=== PATIENT | female | born 1995 | race Caucasian/White ===

== ENCOUNTER 2023-08-07 10:58 | Emergency (ER) | payer BC, SELFPAY ==
--- NOTE | ~2023-08-07 | XR_ITS ---
EXAMINATION: XR abdomen obstructive series DATE: 08/07/2023 11:37 INDICATION: Diarrhea TECHNIQUE: Upright and supine views of the abdomen were obtained. COMPARISON: None. FINDINGS: There is no free intraperitoneal gas. No dilated loops of bowel are evident. There is possi ble colonic wall thickening of the ascending colon. The visualized lung bases are clear. The osseous structures are unremarkable. IMPRESSION: 1. Nonobstructive bowel gas pattern. 2. Possible colonic wall thickening of the ascending colon. Reviewed, dictated and finalized at location F. ER INTERN
--- NOTE | 2023-08-07 11:01 | ED.NAVMDI ---
HPI - Nausea/Vomiting/Diarrhea General Chief complaint: Nausea/Vomiting/Diarrhea Stated complaint: Diarrhea/Nausea Time Seen by Provider: 08/07/23 11:01 Source: patient Mode of arrival: ambulatory Limitations: no limitations History of Present Illness HPI Narrative: Maribel is a 27-year-old female patient presenting to the clinic today with complaints of nausea, abdominal cramping, and diarrhea x2 weeks. She reports she is having 10-20 diarrhea stools per day. States she is unable to leave her house due to the symptoms. Is having cramping prior to having bowel movements as well as intermittently throughout the day. Pain is worse in the left lower quadrant. He denies any blood in her stools. She denies any change in her diet or recent weight loss. States she is having some slight cramping in her legs. Has been taking Imodium with minimal relief. No one at home has a similar symptoms. Does not recall eating any ?bad food. Related Data Home Medications Medication Instructions Recorded Confirmed etonogestrel 68 mg subdermal 1 implant subdermal ONCE 08/07/23 08/07/23 implant (Nexplanon) Allergies Allergy/AdvReac Type Severity Reaction Status Date / Time Sulfa (Sulfonamide Allergy Unknown Verified 08/07/23 11:15 Antibiotics) Review of Systems Review of Systems: Pertinent positives per HPI. Patient denies any fever, chills, rash, headache, visual changes, dizziness, cough, runny nose, sore throat, shortness of breath, chest pain, palpitations, vomiting, constipation, or any urinary issues. PMFSH Comments At the time of my signature, I reviewed and agree with the nursing past medical, surgical, social, and family history. There is no relevant family history pertinent to the patient complaint. Exam Narrative: General: Well-developed, well nourished, in no apparent distress. Head: Normocephalic, atraumatic. Cardio: Regular rate and rhythm, s1 and s2 normal, no murmur appreciated. Resp: Clear to auscultation bilaterally, no rhonchi, rales, wheezing or rubs. Abdomen: Soft, pliable, nondistended, bowel sounds present in all quadrants, tender to palpation to bilateral lower abdomen, no organomegly, no CVAT tenderness. Course Course Emergency Course: Portions of this record may have been created with voice recognition software. Level of Care: Express Care Visit Vital Signs Vital signs: Vital signs reviewed MDM - Nausea/Vomiting/Diarrhea MDM Narrative Medical decision making narrative: At the time of visit patient is resting comfortably on the exam table. Patient appears to be nontoxic. Supportive measures were discussed with the patient and they voiced understanding discharge instructions and agrees to treatment plan. Return precautions reviewed Differential Diagnosis Differential diagnosis: Likely traveler's diarrhea, food poisoning, gastroenteritis, clostridium difficile infection, dehydration and other (Colitis) Imaging Data Radiologist's impression: ITS Impressions Abdomen X-Ray 08/07/23 11:42 IMPRESSION: 1. Nonobstructive bowel gas pattern. 2. Possible colonic wall thickening of the ascending colon. Discharge Plan Discharge Clinical Impression: Colitis Patient Disposition: Home, Self-Care Condition: Stable Instructions: Antibiotic Form, Colitis (ED) Additional Instructions: UA is negative for any sign of infection. UA preg test is negative X-ray is negative for any sign of obstruction however there is some colonic wall thickening of the ascending colon Increase fluids and stay well hydrated Avoid eating spicy, greasy, or fatty foods-stick with a bland diet Avoid foods that cause you to feel bloated. May drink Gatorade or Powerade to replenish electrolytes May take daily [id number] probiotic. Take azithromycin and promethazine as prescribed Follow up with your PCP in 3-5 days if symptoms persist. Prescriptions: New azithromycin
[2023-08-07 11:10] VITALS: BP 106/61; PULSE 91; RESP 16; TEMP 37; O2SAT 100
[2023-08-07 11:16] VITALS: BP 106/61; PULSE 91; RESP 16; TEMP 37; O2SAT 100
== END 2023-08-07 12:03 | disposition home or self-care (01) ==
PROVIDERS: Emergency Provider Nurse Practitioner Family
DX: K52.9 Noninfective gastroenteritis and colitis, unspecified (principal)
CPT/HCPCS: 74019; 81003; 81025; 99203; G0463